=== PATIENT | female | born 2000 | race Two or more races ===

== ENCOUNTER 2018-06-08 09:39 | Inpatient (IN) | payer MEDICAID ==
[~2018-06-08] VITALS: Ht 152.4 cm; Wt 85.7 kg
--- NOTE | 2018-06-08 09:39 | NUR ---
ED Nurse Note: Patient brought in by ambulance from home, patient c/o Right lower quadrant abdominal pain that radiates to her vaginal area. patient reports she is 10 weeks , patient has been seen by OBGYN and has an appt on 06/12. patient was discharged obn 06/07/18 from [facility] had appendix removed on the 06/06/18 per pt. a/o x4, ambulatory.
[2018-06-08 09:42] VITALS: BP 108/72
--- NOTE | 2018-06-08 09:49 | NUR ---
ED Nurse Note: post-surgical site noted on the umbilical area, hypogastric area below the umbilical, and left lower quadrant. closed, no oozing noted.
--- NOTE | 2018-06-08 09:57 | Emergency Room Report ---
History of Present Illness General Chief Complaint: Abdominal Pain Source: Patient, EMS Present Illness HPI Patient is a 17-year-old female who presented after increased right lower abdominal pain. Patient had recent appendectomy at [facility]. Patient was discharged yesterday. Patient had prior history of laparoscopic appendectomy. Patient surgeon's name is Dr. Diego. She reported having worsening pain with supine position. She denies any fever. She states she has not been having any flatus or passing any gas. She reports having worsened pain with supine position. Pain was sharp in nature. She denies any vomiting. Allergies: Coded Allergies: No Known Allergies (Unverified , 06/08/18) Patient History Past Medical History: see triage record Last Menstrual Period: dec Now: Yes - 10 weeks : 1 Reviewed Nursing Documentation: PMH: Agreed; PSxH: Agreed Nursing Documentation-PMH Past Medical History: No Stated History Review of Systems All Other Systems: negative except mentioned in HPI Physical Exam Vital Signs Date Time Temp Pulse Resp B/P (MAP) Pulse Ox O2 Delivery O2 Flow Rate FiO2 06/08/18 09:30 98.1 109 20 105/68 98 Room Air Sp02 EP Interpretation: reviewed, normal General Appearance: normal inspection, alert, mild distress Head: atraumatic ENT: normal ENT inspection, hearing grossly normal, normal voice Neck: normal inspection, full range of motion, supple, no bony tend Respiratory: normal inspection, lungs clear, normal breath sounds, no respiratory distress, no retraction, no wheezing Cardiovascular #1: regular rate, rhythm, no edema Gastrointestinal: soft, tenderness Genitourinary: no CVA tenderness Musculoskeletal: normal inspection, back normal, normal range of motion Neurologic: normal inspection, alert, oriented x3, responsive, speech normal Psychiatric: normal inspection, judgement/insight normal, mood/affect normal Skin: no rash, other - healing incisions Medical Decision Making Diagnostic Impression: Primary Impression: Abdominal pain Additional Impression: S/P laparoscopic appendectomy ER Course Patient presented for abdominal pain. Differential diagnoses included ischemic bowel, appendicitis, perforated viscus, abdominal aortic aneurysm, inferior myocardial infarction, viral gastroenteritis among others. Because of complexity of patient's case laboratory testing and imaging studies were ordered. Patient was given IV fluids as well as IV pain medications. Patient was noted to have prior history of as well as recent appendectomy. She is given IV pain medications. I did discuss with patient surgeon who stated that she had an uncomplicated laparoscopic appendectomy without perforation. Laboratory testing was noted to have a slightly increased white blood count from prior labs from [facility]. Dr. Cronin was contacted for surgical consult. Dr. Tyler Irving was contacted for inpatient management. Labs Test 06/08/18 10:02 06/08/18 10:12 White Blood Count 15.2 K/UL (4.8-10.8) Red Blood Count 3.83 M/UL (4.20-5.40) Hemoglobin 11.5 G/DL (12.0-16.0) Hematocrit 33.7 % (37.0-47.0) Mean Corpuscular Volume 88 FL (80-99) Mean Corpuscular Hemoglobin 29.9 PG (27.0-31.0) Mean Corpuscular Hemoglobin Concent 34.0 G/DL (32.0-36.0) Red Cell Distribution Width 11.4 % (11.6-14.8) Platelet Count 270 K/UL (150-450) Mean Platelet Volume 6.6 FL (6.5-10.1) Neutrophils (%) (Auto) % (45.0-75.0) Lymphocytes (%) (Auto) % (20.0-45.0) Monocytes (%) (Auto) % (1.0-10.0) Eosinophils (%) (Auto) % (0.0-3.0) Basophils (%) (Auto) % (0.0-2.0) Differential Total Cells Counted 100 Neutrophils % (Manual) 84 % (45-75) Lymphocytes % (Manual) 8 % (20-45) Monocytes % (Manual) 8 % (1-10) Eosinophils % (Manual) 0 % (0-3) Basophils % (Manual) 0 % (0-2) Band Neutrophils 0 % (0-8) Platelet Estimate Adequate Platelet Morphology Normal Red Blood Cell Morphology Normal Sodium Level 134 MMOL/L (136-145) Potassium Level 3.4 MMOL/L (3.5-5.1) Chloride Level 101 MMOL/L (98-107) Carbon Dioxide Level 22 MMOL/L (21-32) Anion Gap 12 mmol/L (5-15) Blood Urea Nitrogen 5 mg/dL (7-18) Creatinine 0.5 MG/DL (0.55-1.30) Estimat Glomerular Filtration Rate > 60 mL/min (>60) Glucose Level 89 MG/DL (74-106) Lactic Acid Level 0.90 mmol/L (0.4-2.0) Calcium Level 9.0 MG/DL (8.5-10.1) Total Bilirubin 0.6 MG/DL (0.2-1.0) Aspartate Amino Transf (AST/SGOT) 15 U/L (15-37) Alanine Aminotransferase (ALT/SGPT) 14 U/L (12-78) Alkaline Phosphatase 68 U/L (46-116) Total Protein 7.2 G/DL (6.4-8.2) Albumin 2.7 G/DL (3.4-5.0) Globulin 4.5 g/dL Albumin/Globulin Ratio 0.6 (1.0-2.7) Lipase 48 U/L (73-393) Urine Color Yellow Urine Appearance Clear Urine pH 7 (4.5-8.0) Urine Specific [place] 1.010 (1.005-1.035) Urine Protein 2+ (NEGATIVE) Urine Glucose (UA) Negative (NEGATIVE) Urine Ketones 4+ (NEGATIVE) Urine Blood 1+ (NEGATIVE) Urine Nitrite Negative (NEGATIVE) Urine Bilirubin Negative (NEGATIVE) Urine Urobilinogen 1 MG/DL (0.0-1.0) Urine Leukocyte Esterase 1+ (NEGATIVE) Urine RBC 0-2 /HPF (0 - 2) Urine WBC 2-4 /HPF (0 - 2) Urine Squamous Epithelial Cells Few /LPF (NONE/OCC) Urine Bacteria Occasional /HPF (NONE) Urine Mucus Few /LPF (NONE/OCC) Urine HCG, Qualitative Positive (NEGATIVE) Last Vital Signs Date Time Temp Pulse Resp B/P (MAP) Pulse Ox O2 Delivery O2 Flow Rate FiO2 06/08/18 09:42 99.1 106 27 108/72 100 Room Air Status: improved Disposition: ADMITTED INPATIENT Condition: Ramy Galeana MD Jun 08, 2018 09:57
[2018-06-08] MEDS ORDERED: Morphine Sulfate 4mg/ml Inj (IV USE ONLY) IVP ONE (10:00)
--- NOTE | 2018-06-08 10:35 | NUR ---
ED Nurse Note: sister at bedside
[2018-06-08 10:41] LABS: APPEARANCE,URINE CLEAR; BILIRUBIN, URINE NEGATIVE (NEGATIVE); GLUCOSE, URINE (UA) NEGATIVE (NEGATIVE); KETONES,URINE 4+ (NEGATIVE); LEUKOCYTE ESTERASE ,URINE 1+ (NEGATIVE); NITRITE,URINE NEGATIVE (NEGATIVE); PH,URINE 7 (4.5-8.0); PROTEIN,URINE 2+ (NEGATIVE); UROBILINOGEN,URINE 1 MG/DL (0.0-1.0)
[2018-06-08 10:45] LABS: COLOR,URINE YELLOW
[2018-06-08 10:57] LABS: HEMATOCRIT 33.7 % (37.0-47.0); HEMOGLOBIN 11.5 G/DL (12.0-16.0); MEAN CORPUSCULAR VOLUME 88 FL (80-99); PLATELET COUNT 270 K/UL (150-450); RED BLOOD COUNT 3.83 M/UL (4.20-5.40); RED CELL DISTRIBUTION WIDTH 11.4 % (11.6-14.8); WHITE BLOOD COUNT 15.2 K/UL (4.8-10.8)
[2018-06-08 11:06] LABS: ANION GAP 12 mmol/L (5-15); BLOOD UREA NITROGEN 5 mg/dL (7-18); CARBON DIOXIDE 22 MMOL/L (21-32); CHLORIDE 101 MMOL/L (98-107); CREATININE 0.5 MG/DL (0.55-1.30); POTASSIUM 3.4 MMOL/L (3.5-5.1); SODIUM 134 MMOL/L (136-145)
[2018-06-08 11:11] LABS: ALANINE AMINOTRANSFERASE 14 U/L (12-78); ALBUMIN 2.7 G/DL (3.4-5.0); ALBUMIN/GLOBULIN RATIO 0.6 (1.0-2.7); ALKALINE PHOSPHATASE 68 U/L (46-116); ASPARTATE AMINO TRANSFERASE 15 U/L (15-37); BILIRUBIN,TOTAL 0.6 MG/DL (0.2-1.0)
--- NOTE | 2018-06-08 11:43 | NUR ---
ED Nurse Note: U/S is being done at bedside
[2018-06-08 12:23] VITALS: BP 94/60
[2018-06-08] MEDS ORDERED: Ampicillin/Sulbactam Sod 3 GM in NS 110 ML IVPB ONE (14:15)
--- NOTE | 2018-06-08 14:54 | NUR ---
ED Nurse Note: Patient cleared to go up to 3E, report given to Delmi Allan RN.
--- NOTE | 2018-06-08 14:59 | NUR ---
ED Nurse Note: spoke with dr. monge, ID consult, let him know that patient is receiving Unasyn and 10 weeks .
--- NOTE | 2018-06-08 15:15 | NUR ---
ED Nurse Note: patient is being transferred to with SHELIA Lee with all her belongings
[2018-06-08 15:30] VITALS: BP 105/68
[2018-06-08] MEDS ORDERED: Mylanta II UD 30ml ORAL PRN (15:30)
[2018-06-08] MEDS ORDERED: Nitroglycerin Subl 0.4mg tab SL PRN (15:30)
[2018-06-08] MEDS ORDERED: Miralax 17gm pkt ORAL PRN (15:30)
--- NOTE | 2018-06-08 15:30 | NUR ---
NURSE NOTES: Received report from Mary Johnston RN. Received patient. Patient a/o x 4 lying on the bed. No respiratory distress noted. c/o abdominal pain as 6/10 and patient stat will stand without pain medicine. Patient is 10wks . Belongings checked and room orientation was given to the patient. IV patent. Bed in lowest position, call light within reach. Will continue to monitor.
--- NOTE | 2018-06-08 15:32 | Consultation ---
History of Present Illness General Date patient seen: Jun 08, 2018 Reason for Hospitalization: Abdominal Pain Present Illness HPI This is a very pleasant 17-year-old female who is currently 8-10 weeks who presents to the emergency department at [facility] complaining of abdominal pain. Patient states that on she began abdominal pain and on Saturday went to [facility] where she was diagnosed with appendicitis based on MRI and taken to surgery for laparoscopic appendectomy. She was discharged on Saturday yesterday in stable condition. She went home did not fill her pain prescriptions and began to have abdominal pain. This morning she was feeling very unwell and stated pain with urinating and ambulatory in sitting supine and therefore came to emergency room for evaluation. States that she does have intermittent nausea but no emesis. Has not had flatus or bowel movement since prior to surgery. In the ED noted to have a leukocytosis. Surgery called to evaluate. Allergies: Coded Allergies: No Known Allergies (Unverified , 06/08/18) Patient History History Provided By: Patient, Medical Record, PMD Healthcare decision maker Resuscitation status Advanced Directive on File Review of Systems Review of Symptoms General ROS: no weight loss or fever Psychological ROS: no depression or mood changes, no memory loss Ophthalmic ROS: no visual changes or eye irritation ENT ROS: no nasal congestion, hearing loss, dizziness Allergy and Immunology ROS: no allergic symptoms or urticaria Hematological and Lymphatic ROS: no swollen glands, unusual bleeding or bruising Endocrine ROS: no polyuria, polydipsia, weight changes, temperature intolerance Respiratory ROS: no cough, shortness of breath, or wheezing Cardiovascular ROS: no chest pain or dyspnea on exertion Gastrointestinal ROS: denies abdominal pain, bright red blood in stool. Musculoskeletal ROS: no myalgias or arthralgias Neurological ROS: no TIA or stroke symptoms Dermatological ROS: no new or changing skin lesions, rashes or pruritis Physical Exam Physical Exam General appearance: alert, cooperative, no distress, appears stated age Head: Normocephalic, without obvious abnormality, atraumatic Eyes: conjunctivae/corneas clear. PERRL, EOM's intact. Fundi benign Throat: Lips, mucosa, and tongue normal. Teeth and gums normal Neck: supple, symmetrical, trachea midline, no adenopathy, thyroid: not enlarged, symmetric, no tenderness/mass/nodules, no carotid bruit and no JVD Lungs: clear to auscultation bilaterally Heart: regular rate and rhythm, S1, S2 normal, no murmur, click, rub or gallop Abdomen: soft, RLQ tender. Bowel sounds decreased. No masses, no organomegaly ; incisions c/d/i Extremities: extremities normal, atraumatic, no cyanosis or edema Pulses: 2+ and symmetric Skin: Skin color, texture, turgor normal. No rashes or lesions Neurologic: Grossly normal Last 24 Hour Vital Signs Date Time Temp Pulse Resp B/P (MAP) Pulse Ox O2 Delivery O2 Flow Rate FiO2 06/08/18 15:18 99.1 95 27 94/60 100 Room Air 06/08/18 12:23 95 94/60 06/08/18 10:53 99.1 06/08/18 09:42 99.1 106 27 108/72 100 Room Air 06/08/18 09:39 109 20 Room Air 06/08/18 09:30 98.1 109 20 105/68 98 Room Air Laboratory Tests Test 06/08/18 10:02 06/08/18 10:12 White Blood Count 15.2 K/UL (4.8-10.8) H Red Blood Count 3.83 M/UL (4.20-5.40) L Hemoglobin 11.5 G/DL (12.0-16.0) L Hematocrit 33.7 % (37.0-47.0) L Mean Corpuscular Volume 88 FL (80-99) Mean Corpuscular Hemoglobin 29.9 PG (27.0-31.0) Mean Corpuscular Hemoglobin Concent 34.0 G/DL (32.0-36.0) Red Cell Distribution Width 11.4 % (11.6-14.8) L Platelet Count 270 K/UL (150-450) Mean Platelet Volume 6.6 FL (6.5-10.1) Neutrophils (%) (Auto) % (45.0-75.0) Lymphocytes (%) (Auto) % (20.0-45.0) Monocytes (%) (Auto) % (1.0-10.0) Eosinophils (%) (Auto) % (0.0-3.0) Basophils (%) (Auto) % (0.0-2.0) Differential Total Cells Counted 100 Neutrophils % (Manual) 84 % (45-75) H Lymphocytes % (Manual) 8 % (20-45) L Monocytes % (Manual) 8 % (1-10) Eosinophils % (Manual) 0 % (0-3) Basophils % (Manual) 0 % (0-2) Band Neutrophils 0 % (0-8) Platelet Estimate Adequate Platelet Morphology Normal Red Blood Cell Morphology Normal Sodium Level 134 MMOL/L (136-145) L Potassium Level 3.4 MMOL/L (3.5-5.1) L Chloride Level 101 MMOL/L (98-107) Carbon Dioxide Level 22 MMOL/L (21-32) Anion Gap 12 mmol/L (5-15) Blood Urea Nitrogen 5 mg/dL (7-18) L Creatinine 0.5 MG/DL (0.55-1.30) L Estimat Glomerular Filtration Rate > 60 mL/min (>60) Glucose Level 89 MG/DL (74-106) Lactic Acid Level 0.90 mmol/L (0.4-2.0) Calcium Level 9.0 MG/DL (8.5-10.1) Total Bilirubin 0.6 MG/DL (0.2-1.0) Aspartate Amino Transf (AST/SGOT) 15 U/L (15-37) Alanine Aminotransferase (ALT/SGPT) 14 U/L (12-78) Alkaline Phosphatase 68 U/L (46-116) Total Protein 7.2 G/DL (6.4-8.2) Albumin 2.7 G/DL (3.4-5.0) L Globulin 4.5 g/dL Albumin/Globulin Ratio 0.6 (1.0-2.7) L Lipase 48 U/L (73-393) L Urine Color Yellow Urine Appearance Clear Urine pH 7 (4.5-8.0) Urine Specific [place] 1.010 (1.005-1.035) Urine Protein 2+ (NEGATIVE) H Urine Glucose (UA) Negative (NEGATIVE) Urine Ketones 4+ (NEGATIVE) H Urine Blood 1+ (NEGATIVE) H Urine Nitrite Negative (NEGATIVE) Urine Bilirubin Negative (NEGATIVE) Urine Urobilinogen 1 MG/DL (0.0-1.0) H Urine Leukocyte Esterase 1+ (NEGATIVE) H Urine RBC 0-2 /HPF (0 - 2) Urine WBC 2-4 /HPF (0 - 2) Urine Squamous Epithelial Cells Few /LPF (NONE/OCC) Urine Bacteria Occasional /HPF (NONE) Urine Mucus Few /LPF (NONE/OCC) H Urine HCG, Qualitative Positive (NEGATIVE) Height (Feet): 5 Weight (Pounds): 189 Assessment/Plan Problem List: (1) S/P laparoscopic appendectomy ICD Codes: Z90.49 - Acquired absence of other specified parts of digestive tract SNOMED: 2144254, 00143836, 108435366, [id number] (2) Abdominal pain Assessment & Plan: This is a very pleasant 17-year-old female status post lap scopic appendectomy for acute appendicitis while in her first trimester of who was discharged in stable condition but has since developed worsening abdominal pain. In discussing patient's care and condition we discussed her potential complications and current state of care. Does not seem as she had a complication of surgery but rather is developing an ileus and abdominal discomfort without treatment given that she has not her pain prescription or taking significant pain medication to subside the pain. Recommend admission for monitoring and care. Okay for sips of clears IV fluids IV abx serial exams pain Rx ambulate and out of bed will follow with recs thank you ICD Codes: R10.9 - Unspecified abdominal pain SNOMED: 14492873 (3) Ileus ICD Codes: K56.7 - Ileus, unspecified SNOMED: 257695333 Aldo Cronin Jun 08, 2018 15:32
[2018-06-08 16:00] VITALS: BP 105/68
[2018-06-08] MEDS: D5 1/2NS 1,000 ML IV SCH (16:44)
[2018-06-08] MEDS: Piperacillin/Tazobactam 3.375 GM in D5W 110 ML IVPB SCH (17:32)
--- NOTE | 2018-06-08 19:35 | NUR ---
HAND-OFF: Report given to HERMILO Dorsey. Patient in stable condition.
--- NOTE | 2018-06-08 19:41 | NUR ---
NURSE NOTES: Report taken from HERMILO Allan. Patient awake and in bed, A&Ox4, mother at bedside. No signs of distress on room air. She is complaining that the pain is getting worse from earlier, especially when she needs to move, 10/08. Surgical sites c/d/i, left open to air. IV site c/d/i, running IV fluids and zosyn. She has been made aware of the medication available to her and is aware of possible side effects especially while . No skin issues present. Continue to monitor, call light within reach, bed in lowest position.
[2018-06-08 20:00] VITALS: BP 101/66
[2018-06-08] MEDS: Heparin 5000 units/ml inj SUBQ SCH (20:28)
[2018-06-08] MEDS: Morphine Sulfate 2mg/ml Inj(IV/IM USE ONLY) IVP PRN (20:30)
[2018-06-09 00:05] VITALS: BP 105/67
[2018-06-09] MEDS: Piperacillin/Tazobactam 3.375 GM in D5W 110 ML IVPB SCH ×2 (02:09→10:40)
[2018-06-09] MEDS: D5 1/2NS 1,000 ML IV SCH ×2 (02:11→17:15)
[2018-06-09] MEDS: Morphine Sulfate 2mg/ml Inj(IV/IM USE ONLY) IVP PRN ×3 (06:27→20:36)
--- NOTE | 2018-06-09 07:20 | NUR ---
NURSE NOTES:WALKING ROUNDS DONE WITH NIGHT RN(ISIDRO),PATIENT SITTING A THE SIDE OF THE BED,A/OX4,ROOM AIR,PAIN LEVEL 6/10(CURRENTLY MEDICATED BY NIGHT NURSE)3 LAP SITES C/D/I,SUPPLY SPECIALIST.PLAN OF CARE DISCUSSED,VERBALIZED UNDERSTANDING.
--- NOTE | 2018-06-09 07:20 | NUR ---
HAND-OFF: Report given to HERMILO Cordero. Patient pain is 6/10, she is alert and VS stable.
[2018-06-09 07:28] LABS: BASOPHILS % (AUTO) 0.6 % (0.0-2.0); EOSINOPHILS % (AUTO) 1.1 % (0.0-3.0); HEMATOCRIT 29.3 % (37.0-47.0); HEMOGLOBIN 9.8 G/DL (12.0-16.0); LYMPHOCYTES % (AUTO) 10.3 % (20.0-45.0); MEAN CORPUSCULAR VOLUME 88 FL (80-99); MONOCYTES % (AUTO) 5.2 % (1.0-10.0); NEUTROPHILS % (AUTO) 82.9 % (45.0-75.0); PLATELET COUNT 278 K/UL (150-450); RED BLOOD COUNT 3.33 M/UL (4.20-5.40); RED CELL DISTRIBUTION WIDTH 11.6 % (11.6-14.8)
[2018-06-09 07:46] LABS: ALANINE AMINOTRANSFERASE 15 U/L (12-78); ALBUMIN 2.2 G/DL (3.4-5.0); ALBUMIN/GLOBULIN RATIO 0.5 (1.0-2.7); ALKALINE PHOSPHATASE 103 U/L (46-116); AMYLASE 30 U/L (25-115); ANION GAP 11 mmol/L (5-15); ASPARTATE AMINO TRANSFERASE 15 U/L (15-37); BILIRUBIN,TOTAL 0.8 MG/DL (0.2-1.0); BLOOD UREA NITROGEN 5 mg/dL (7-18); CALCIUM 8.3 MG/DL (8.5-10.1); CARBON DIOXIDE 21 MMOL/L (21-32); CHLORIDE 103 MMOL/L (98-107); CREATININE 0.5 MG/DL (0.55-1.30); POTASSIUM 3.1 MMOL/L (3.5-5.1); SODIUM 135 MMOL/L (136-145)
[2018-06-09 08:00] VITALS: BP 95/63
[2018-06-09] MEDS: Pantoprazole Inj IVP SCH (08:39)
[2018-06-09] MEDS: Heparin 5000 units/ml inj SUBQ SCH ×2 (08:41→20:40)
--- NOTE | 2018-06-09 11:27 | GI Initial Consult Note ---
History of Present Illness General Date patient seen: Jun 09, 2018 Time patient seen: 11:22 Reason for Hospitalization: Abdominal Pain Referring physician: JIMMY Reason for Consultation: Abdominal pain Present Illness HPI Patient is a 17-year-old female who presented after increased right lower abdominal pain. Patient had recent appendectomy at [facility]. Patient was discharged yesterday. Patient had prior history of laparoscopic appendectomy. Patient surgeon's name is Dr. Diego. She reported having worsening pain with supine position. She denies any fever. She states she has not been having any flatus or passing any gas. She reports having worsened pain with supine position. Pain was sharp in nature. She denies any vomiting. GI consulted for abdominal pain. Patient seen, awake alert and oriented x4 no apparent distress. Still has complaint of abdominal pain at this time, but has improved. Labs reviewed; white count of 12, hemoglobin of 9.8 and no transaminitis. Patient has no history of endoscopic or colonoscopy. Allergies: Coded Allergies: No Known Allergies (Unverified , 06/08/18) Patient History History Provided By: Patient, Medical Record PMH Narrative Past Medical History: see triage record Last Menstrual Period: dec Now: Yes - 10 weeks : 1 Reviewed Nursing Documentation: PMH: Agreed; PSxH: Agreed Nursing Documentation-PMH Past Medical History: No Stated History Past Surgical History: appendectomy Social History: Denies: smoking, alcohol use, drug use, other Review of Systems Genitourinary: Reports: no symptoms All Other Systems: negative except mentioned in HPI Physical Exam Vital Signs Date Time Temp Pulse Resp B/P (MAP) Pulse Ox O2 Delivery O2 Flow Rate FiO2 06/08/18 09:30 98.1 109 20 105/68 98 Room Air Sp02 EP Interpretation: reviewed, normal Labs Laboratory Tests Test 06/09/18 06:38 White Blood Count 12.0 K/UL (4.8-10.8) H Red Blood Count 3.33 M/UL (4.20-5.40) L Hemoglobin 9.8 G/DL (12.0-16.0) L Hematocrit 29.3 % (37.0-47.0) L Mean Corpuscular Volume 88 FL (80-99) Mean Corpuscular Hemoglobin 29.3 PG (27.0-31.0) Mean Corpuscular Hemoglobin Concent 33.3 G/DL (32.0-36.0) Red Cell Distribution Width 11.6 % (11.6-14.8) Platelet Count 278 K/UL (150-450) Mean Platelet Volume 6.2 FL (6.5-10.1) L Neutrophils (%) (Auto) 82.9 % (45.0-75.0) H Lymphocytes (%) (Auto) 10.3 % (20.0-45.0) L Monocytes (%) (Auto) 5.2 % (1.0-10.0) Eosinophils (%) (Auto) 1.1 % (0.0-3.0) Basophils (%) (Auto) 0.6 % (0.0-2.0) Activated Partial Thromboplast Time 37 SEC (23-33) H Sodium Level 135 MMOL/L (136-145) L Potassium Level 3.1 MMOL/L (3.5-5.1) L Chloride Level 103 MMOL/L (98-107) Carbon Dioxide Level 21 MMOL/L (21-32) Anion Gap 11 mmol/L (5-15) Blood Urea Nitrogen 5 mg/dL (7-18) L Creatinine 0.5 MG/DL (0.55-1.30) L Estimat Glomerular Filtration Rate > 60 mL/min (>60) Glucose Level 98 MG/DL (74-106) Calcium Level 8.3 MG/DL (8.5-10.1) L Total Bilirubin 0.8 MG/DL (0.2-1.0) Aspartate Amino Transf (AST/SGOT) 15 U/L (15-37) Alanine Aminotransferase (ALT/SGPT) 15 U/L (12-78) Alkaline Phosphatase 103 U/L (46-116) Total Protein 6.3 G/DL (6.4-8.2) L Albumin 2.2 G/DL (3.4-5.0) L Globulin 4.1 g/dL Albumin/Globulin Ratio 0.5 (1.0-2.7) L Amylase Level 30 U/L (25-115) Lipase 68 U/L (73-393) L General Appearance: well appearing, no apparent distress, alert Head: normocephalic EENT: PERRL/EOMI, normal ENT inspection Neck: supple Respiratory: normal breath sounds, no respiratory distress Cardiovascular: normal rate Gastrointestinal: normal inspection, non tender, soft, normal bowel sounds, non -distended Rectal: deferred Genitourinary: no CVA tenderness Musculoskeletal: normal inspection, back normal Neurologic: normal inspection, alert, oriented x3, responsive Psychiatric: normal inspection, judgement/insight normal, memory normal Skin: normal inspection, normal color, no rash, warm/dry, palpation normal, well hydrated Lymphatic: normal inspection, no adenopathy Current Medications Current Medications Medications (Trade) Dose Ordered Sig/Matt Route PRN Reason Start Time Stop Time Status Last Admin Dose Admin Acetaminophen (Tylenol) 650 mg Q4H PRN ORAL fever 06/08/18 15:30 07/08/18 15:29 Al Hydroxide/Mg Hydroxide (Mylanta II) 30 ml Q6H PRN ORAL dyspepsia 06/08/18 15:30 07/08/18 15:29 Dextrose (Dextrose 50%) 25 ml Q30M PRN IV Hypoglycemia 06/08/18 15:30 07/08/18 15:29 Dextrose (Dextrose 50%) 50 ml Q30M PRN IV Hypoglycemia 06/08/18 15:30 07/08/18 15:29 Dextrose/Sodium Chloride 1,000 ml @ 75 mls/hr [id number] IV 06/08/18 15:29 07/08/18 15:28 06/09/18 02:11 Diphenhydramine HCl (Benadryl) 25 mg Q6H PRN ORAL Itching/Pruritis 06/08/18 15:30 07/08/18 15:29 Heparin Sodium (Porcine) (Heparin 5000 units/ml) 5,000 units EVERY 12 HOURS SUBQ 06/08/18 21:00 07/08/18 20:59 06/09/18 08:41 Morphine Sulfate (Morphine Sulfate) 2 mg Q4H PRN IVP severe Pain (Pain Scale 7-10) 06/08/18 15:30 06/15/18 15:29 06/09/18 06:27 Nitroglycerin (Ntg) 0.4 mg Q5M X 3 DOSES PRN SL Prn Chest Pain 06/08/18 15:30 07/08/18 15:29 Ondansetron HCl (Zofran) 4 mg Q6H PRN IVP Nausea & Vomiting 06/08/18 15:30 07/08/18 15:29 Pantoprazole (Protonix) 40 mg DAILY IVP 06/09/18 09:00 07/09/18 08:59 06/09/18 08:39 Piperacillin Sod/ Tazobactam Sod 3.375 gm/Dextrose 110 ml @ 27.5 mls/hr Q8H IVPB 06/08/18 18:00 06/15/18 17:59 06/09/18 10:40 Polyethylene Glycol (Miralax) 17 gm HSPRN PRN ORAL Constipation 06/08/18 15:30 07/08/18 15:29 Temazepam (Restoril) 15 mg HSPRN PRN ORAL Insomnia 06/08/18 15:30 06/15/18 15:29 GI: Plan Problems: (1) S/P laparoscopic appendectomy (2) Abdominal pain (3) Ileus Plan Surgical note reviewed >> Possible developing ileus and abdominal discomfort Await return of bowel function Advance diet as tolerated, on clear liquid diet. Encourage ambulation Pain management Zofran as needed PPI IV hydration plus electrolyte correction anemia work up OB stool r/o GI bleed monitor H&H, prn transfusions bowel regime ppi fu labs Discussed with Dr. Alvarado. Thank you for this patient referral, we will follow. The patient was seen and examined at bedside and all new and available data was reviewed in the patients chart. I agree with the above findings, impression and plan. (Patient seen earlier today. Signature stamp does not reflect patient encounter time.). - MD Estrella Swenson AnhJeffrey PADILLA Jun 09, 2018 11:27
[2018-06-09 12:00] VITALS: BP 102/66
--- NOTE | 2018-06-09 12:53 | Consultation ---
History of Present Illness General Date patient seen: Jun 09, 2018 Chief Complaint: Abdominal Pain Referring physician: JIMMY Reason for Consultation: Abdominal pain Present Illness HPI 17 y/o F on 10 gestational week presents to ED on 06/08 with abd pain. Pain started 3 days prior to admission. She was seen in [facility] 2 days prior to admission and was diagnosed appendicitis based on MRI and taken for laparoscopic appendectomy and discharged next day in stable condition. Patient now returns with abd pain (did not filled her pain prescriptions), dysuria, intermittent nausea. Pain is worse in supine position. Denies emesis, fever. Allergies: Coded Allergies: No Known Allergies (Unverified , 06/08/18) Patient History Healthcare decision maker Resuscitation status Full Code Advanced Directive on File Patient History Narrative Pmhx: as above Shx: Denies: smoking, alcohol use, drug use, other Fhx: non contributory Review of Systems All Other Systems: negative except mentioned in HPI Physical Exam Physical Exam Narrative General appearance: alert, cooperative, no distress, appears stated age Head: Normocephalic, without obvious abnormality, atraumatic Eyes: conjunctivae/corneas clear. PERRL, EOM's intact. Fundi benign Throat: Lips, mucosa, and tongue normal. Teeth and gums normal Neck: supple, symmetrical, trachea midline, no adenopathy, thyroid: not enlarged, symmetric, no tenderness/mass/nodules, no carotid bruit and no JVD Lungs: clear to auscultation bilaterally Heart: regular rate and rhythm, S1, S2 normal, no murmur, click, rub or gallop Abdomen: soft, RLQ tender. Bowel sounds decreased. No masses, no organomegaly ; incisions c/d/i Extremities: extremities normal, atraumatic, no cyanosis or edema Pulses: 2+ and symmetric Skin: Skin color, texture, turgor normal. No rashes or lesions Neurologic: Grossly normal Last 24 Hour Vital Signs Date Time Temp Pulse Resp B/P (MAP) Pulse Ox O2 Delivery O2 Flow Rate FiO2 06/09/18 12:00 99.2 97 18 102/66 (78) 98 06/09/18 08:00 99.5 91 18 95/63 (74) 98 06/09/18 07:20 Room Air 06/09/18 00:05 98.9 97 18 105/67 (80) 98 06/08/18 21:00 Room Air 06/08/18 20:00 98.7 92 18 101/66 (78) 97 93 06/08/18 18:41 Room Air 06/08/18 15:52 Room Air 06/08/18 15:30 98.8 94 18 105/68 (80) 96 06/08/18 15:18 99.1 95 27 94/60 100 Room Air Intake and Output 06/08/18 06/09/18 19:00 07:00 Intake Total 277.5 ml 280 ml Balance 277.5 ml 280 ml Intake Oral 100 ml 280 ml IV Total 177.5 ml # Voids 1 2 Laboratory Tests Test 06/09/18 06:38 White Blood Count 12.0 K/UL (4.8-10.8) H Red Blood Count 3.33 M/UL (4.20-5.40) L Hemoglobin 9.8 G/DL (12.0-16.0) L Hematocrit 29.3 % (37.0-47.0) L Mean Corpuscular Volume 88 FL (80-99) Mean Corpuscular Hemoglobin 29.3 PG (27.0-31.0) Mean Corpuscular Hemoglobin Concent 33.3 G/DL (32.0-36.0) Red Cell Distribution Width 11.6 % (11.6-14.8) Platelet Count 278 K/UL (150-450) Mean Platelet Volume 6.2 FL (6.5-10.1) L Neutrophils (%) (Auto) 82.9 % (45.0-75.0) H Lymphocytes (%) (Auto) 10.3 % (20.0-45.0) L Monocytes (%) (Auto) 5.2 % (1.0-10.0) Eosinophils (%) (Auto) 1.1 % (0.0-3.0) Basophils (%) (Auto) 0.6 % (0.0-2.0) Activated Partial Thromboplast Time 37 SEC (23-33) H Sodium Level 135 MMOL/L (136-145) L Potassium Level 3.1 MMOL/L (3.5-5.1) L Chloride Level 103 MMOL/L (98-107) Carbon Dioxide Level 21 MMOL/L (21-32) Anion Gap 11 mmol/L (5-15) Blood Urea Nitrogen 5 mg/dL (7-18) L Creatinine 0.5 MG/DL (0.55-1.30) L Estimat Glomerular Filtration Rate > 60 mL/min (>60) Glucose Level 98 MG/DL (74-106) Calcium Level 8.3 MG/DL (8.5-10.1) L Total Bilirubin 0.8 MG/DL (0.2-1.0) Aspartate Amino Transf (AST/SGOT) 15 U/L (15-37) Alanine Aminotransferase (ALT/SGPT) 15 U/L (12-78) Alkaline Phosphatase 103 U/L (46-116) Total Protein 6.3 G/DL (6.4-8.2) L Albumin 2.2 G/DL (3.4-5.0) L Globulin 4.1 g/dL Albumin/Globulin Ratio 0.5 (1.0-2.7) L Amylase Level 30 U/L (25-115) Lipase 68 U/L (73-393) L Height (Feet): 5 Weight (Pounds): 189 Medications Current Medications Medications (Trade) Dose Ordered Sig/Matt Route PRN Reason Start Time Stop Time Status Last Admin Dose Admin Acetaminophen (Tylenol) 650 mg Q4H PRN ORAL fever 06/08/18 15:30 07/08/18 15:29 Al Hydroxide/Mg Hydroxide (Mylanta II) 30 ml Q6H PRN ORAL dyspepsia 06/08/18 15:30 07/08/18 15:29 Dextrose (Dextrose 50%) 25 ml Q30M PRN IV Hypoglycemia 06/08/18 15:30 07/08/18 15:29 Dextrose (Dextrose 50%) 50 ml Q30M PRN IV Hypoglycemia 06/08/18 15:30 07/08/18 15:29 Dextrose/Sodium Chloride 1,000 ml @ 75 mls/hr [id number] IV 06/08/18 15:29 07/08/18 15:28 06/09/18 02:11 Diphenhydramine HCl (Benadryl) 25 mg Q6H PRN ORAL Itching/Pruritis 06/08/18 15:30 07/08/18 15:29 Heparin Sodium (Porcine) (Heparin 5000 units/ml) 5,000 units EVERY 12 HOURS SUBQ 06/08/18 21:00 07/08/18 20:59 3/11/19 08:41 Morphine Sulfate (Morphine Sulfate) 2 mg Q4H PRN IVP severe Pain (Pain Scale 7-10) 06/08/18 15:30 06/15/18 15:29 06/09/18 06:27 Nitroglycerin (Ntg) 0.4 mg Q5M X 3 DOSES PRN SL Prn Chest Pain 06/08/18 15:30 07/08/18 15:29 Ondansetron HCl (Zofran) 4 mg Q6H PRN IVP Nausea & Vomiting 06/08/18 15:30 07/08/18 15:29 Pantoprazole (Protonix) 40 mg DAILY IVP 06/09/18 09:00 07/09/18 08:59 06/09/18 08:39 Piperacillin Sod/ Tazobactam Sod 3.375 gm/Dextrose 110 ml @ 27.5 mls/hr Q8H IVPB 06/08/18 18:00 06/15/18 17:59 06/09/18 10:40 Polyethylene Glycol (Miralax) 17 gm HSPRN PRN ORAL Constipation 06/08/18 15:30 07/08/18 15:29 Temazepam (Restoril) 15 mg HSPRN PRN ORAL Insomnia 06/08/18 15:30 06/15/18 15:29 Assessment/Plan Assessment/Plan Abx: Unasyn x1 06/08 Zosyn 06/08- Assessment: Abd pain, improving- ?developing ileus Leukocytosis- ? reactive; improving -u/a no pyuria -bcx p Recent Acute appendicitis s/p lap appendectomy 06/07 , 10 GWA Plan: -Switch empiric Zosyn #2 to Ceftriaxone for now -f/u cx -Monitor CBC/CMP, temperatures -GI, Sx f/u Thank you for this consultation. Will continue to follow along with you. Discussed with Soraida Arteaga M.D. Jun 09, 2018 12:53
--- NOTE | 2018-06-09 13:55 | NUR ---
CASE MANAGEMENT:REVIEW 17 YR OLD FEMALE BIBA FROM HOME CC; ABDOMINAL PAIN. S/P APPY AT [facility] SI: SURGICAL ABDOMEN 99.1 109 20 105/68 98% ON RA WBC+15.2 IS: IV ZOFRAN X1 IV MORPHINE X1 1L NS 500CC NS BOLUS IV AMPICILLIN ABDOMINAL/PELVIC US BLOOD CX : TO MED/SURG PLAN: SURGICAL CONSULT 06/09/18 SI: S/P LAP APPY ABD PAIN. ILEUS 99.5 91 95/63 98% ON RA WBC+12.0 H/H-9.8/29.3 K-3.1 IS: IV ZOSYN Q8HRS IV PROTONIX QD IV PROTONIX QD IV MORPHINE Q4HRS PRN : MED/SURG STATUS 3 EAST PLAN: CLEAR LIQUIDS PAIN MGMT URINE CX
[2018-06-09 16:00] VITALS: BP 116/66
--- NOTE | 2018-06-09 16:02 | NUR ---
*-* INSURANCE *-* ALL CLINICALS , REVIEW AND INTERQUAL FAXED TO: JERRY EDMOND: YANA P- [phone] X [facility] F- [phone]
--- NOTE | 2018-06-09 16:38 | Surgery Progress Note ---
Surgery Progress Note Subjective Symptoms: improved, tolerating diet, passing flatus Additional Comments pain much improved. no n/v/f/c. tolerating diet. labs improved Objective Last 24 Hour Vital Signs Date Time Temp Pulse Resp B/P (MAP) Pulse Ox O2 Delivery O2 Flow Rate FiO2 06/09/18 12:00 99.2 97 18 102/66 (78) 98 06/09/18 08:00 99.5 91 18 95/63 (74) 98 06/09/18 07:20 Room Air 06/09/18 00:05 98.9 97 18 105/67 (80) 98 06/08/18 21:00 Room Air 06/08/18 20:00 98.7 92 18 101/66 (78) 97 93 06/08/18 18:41 Room Air I&O Intake and Output 06/08/18 06/09/18 19:00 07:00 Intake Total 277.5 ml 280 ml Balance 277.5 ml 280 ml Intake Oral 100 ml 280 ml IV Total 177.5 ml # Voids 1 2 Cardiovascular: RSR Respiratory: clear Abdomen: soft, non-tender, present bowel sounds, non-distended Extremities: no cyanosis Laboratory Tests Test 06/09/18 06:38 White Blood Count 12.0 K/UL (4.8-10.8) H Red Blood Count 3.33 M/UL (4.20-5.40) L Hemoglobin 9.8 G/DL (12.0-16.0) L Hematocrit 29.3 % (37.0-47.0) L Mean Corpuscular Volume 88 FL (80-99) Mean Corpuscular Hemoglobin 29.3 PG (27.0-31.0) Mean Corpuscular Hemoglobin Concent 33.3 G/DL (32.0-36.0) Red Cell Distribution Width 11.6 % (11.6-14.8) Platelet Count 278 K/UL (150-450) Mean Platelet Volume 6.2 FL (6.5-10.1) L Neutrophils (%) (Auto) 82.9 % (45.0-75.0) H Lymphocytes (%) (Auto) 10.3 % (20.0-45.0) L Monocytes (%) (Auto) 5.2 % (1.0-10.0) Eosinophils (%) (Auto) 1.1 % (0.0-3.0) Basophils (%) (Auto) 0.6 % (0.0-2.0) Activated Partial Thromboplast Time 37 SEC (23-33) H Sodium Level 135 MMOL/L (136-145) L Potassium Level 3.1 MMOL/L (3.5-5.1) L Chloride Level 103 MMOL/L (98-107) Carbon Dioxide Level 21 MMOL/L (21-32) Anion Gap 11 mmol/L (5-15) Blood Urea Nitrogen 5 mg/dL (7-18) L Creatinine 0.5 MG/DL (0.55-1.30) L Estimat Glomerular Filtration Rate > 60 mL/min (>60) Glucose Level 98 MG/DL (74-106) Calcium Level 8.3 MG/DL (8.5-10.1) L Total Bilirubin 0.8 MG/DL (0.2-1.0) Aspartate Amino Transf (AST/SGOT) 15 U/L (15-37) Alanine Aminotransferase (ALT/SGPT) 15 U/L (12-78) Alkaline Phosphatase 103 U/L (46-116) Total Protein 6.3 G/DL (6.4-8.2) L Albumin 2.2 G/DL (3.4-5.0) L Globulin 4.1 g/dL Albumin/Globulin Ratio 0.5 (1.0-2.7) L Amylase Level 30 U/L (25-115) Lipase 68 U/L (73-393) L Plan Problems: (1) S/P laparoscopic appendectomy (2) Abdominal pain Assessment & Plan: This is a very pleasant 17-year-old female status post lap scopic appendectomy for acute appendicitis while in her first trimester of who was discharged in stable condition but has since developed worsening abdominal pain. In discussing patient's care and condition we discussed her potential complications and current state of care. Does not seem as she had a complication of surgery but rather is developing an ileus and abdominal discomfort without treatment given that she has not her pain prescription or taking significant pain medication to subside the pain. Recommend admission for monitoring and care. diet as tolerated IV fluids IV abx serial exams pain Rx ambulate and out of bed d/c planning will follow with recs thank you (3) Ileus Aldo Cronin Jun 09, 2018 16:38
[2018-06-09] MEDS: cefTRIAXone 1 GM in D5W 55 ML IVPB SCH (17:15)
--- NOTE | 2018-06-09 19:02 | History and Physical Report ---
DATE OF ADMISSION: 06/08/2018 DATE AND TIME SEEN: 06/09/2018, 12 noon. CONSULTANTS: 1. Aldo Cronin M.D. 2. Wilbert Garcia M.D. 3. Joseph Heath M.D. 4. Doc Alvarado M.D. CHIEF COMPLAINT: Abdominal pain, status post appendectomy. BRIEF HISTORY: This is a 17-year-old female, who 3 days ago had appendectomy at [facility]. She was discharged and abdominal pain became worse. The patient came to [facility] last night, diagnosed with abdominal pain status post appendectomy and possible sepsis with white count of 15. The patient was admitted to medical floor. Currently, feeling little better, slight abdominal discomfort. No complaint. REVIEW OF SYSTEMS: No chest pain. Slight short of breath. Slight nausea. No vomiting. No diarrhea. PAST MEDICAL HISTORY: Includes appendicitis. PAST SURGICAL HISTORY: Appendectomy 3 days ago. ALLERGIES: Denies. SOCIAL HISTORY: No smoking. No alcohol. No intravenous drug abuse. FAMILY HISTORY: Noncontributory. PHYSICAL EXAMINATION: GENERAL: Calm in bed, oriented x3, no acute distress. VITAL SIGNS: Temperature 99, pulse 91, respirations 18, blood pressure 95/63. CARDIOVASCULAR: No murmurs. LUNGS: Distant and clear. ABDOMEN: Bowel sounds positive. Distant. Soft. No guarding. No rigidity. No rebound. EXTREMITIES: No cyanosis, clubbing, or edema. NEUROLOGIC: The patient moves all extremities. Slightly weak. LABORATORY AND DIAGNOSTIC DATA: Labs at this time show white count went down to 12, hemoglobin and hematocrit 9.8/29, otherwise CBC is normal. Sodium 135, potassium 3.1, BUN and creatinine 5 and 0.5. PTT is 37. Urinalysis showed 1+ leukocyte esterase. MEDICATIONS: Include pantoprazole, heparin, Zosyn, Tylenol, morphine, Zofran, temazepam, diphenhydramine, aluminium hydroxide, nitroglycerin. ASSESSMENT: 1. Abdominal pain. 2. UTI. 3. Possible sepsis after appendectomy. PLAN: 1. Antibiotic per Infectious Disease. 2. Pain control. 3. Dietary followup. 4. IV fluids. 5. CBC, BMP in the morning. Tyler Irving D.O. DR: ANALY JOB#: [id number] CC:
[2018-06-09] MEDS ORDERED: NS 275ml ONE (19:08)
[2018-06-09] MEDS ORDERED: D5 1/2NS 1000ml IV ONE (19:08)
[2018-06-09] MEDS ORDERED: Tubing IV Secondary IV ONE (19:08)
--- NOTE | 2018-06-09 19:25 | NUR ---
HAND-OFF: Report given to .ISIDRO AKHTAR.
--- NOTE | 2018-06-09 19:27 | NUR ---
NURSE NOTES: Report taken from HERMILO Cordero. Patient is awake and in bed, A&Ox4. No signs of distess on room air. Mother at bedside. She will be getting a transfer to another area hospital, follow up with CM. Skin is c/d/i. IV site c/d/i and running IV fluids. Has some complaints of pain 7/10 RUQ. Stool sample not collected, will attempt to collect during shift. Tolerating regular diet. Bed in lowest position, call light within reach.
--- NOTE | 2018-06-09 19:32 | NUR ---
CASE MANAGEMENT:DCPNOTE PER MD PATIENT IS STABLE FOR TRANSFER TO [facility] SPOKE WITH MARCOS AFTER HOU[facility] / [phone] FAXED FACESHEET [phone] [facility] WILL FOLLOW UP
[2018-06-09 20:00] VITALS: BP 117/62
[2018-06-10] VITALS: BP 99/64
[2018-06-10] MEDS: Morphine Sulfate 2mg/ml Inj(IV/IM USE ONLY) IVP PRN (01:38)
[2018-06-10 04:00] VITALS: BP 102/69
[2018-06-10 07:14] LABS: BASOPHILS % (AUTO) 0.5 % (0.0-2.0); EOSINOPHILS % (AUTO) 2.8 % (0.0-3.0); HEMATOCRIT 28.7 % (37.0-47.0); HEMOGLOBIN 9.7 G/DL (12.0-16.0); LYMPHOCYTES % (AUTO) 20.5 % (20.0-45.0); MEAN CORPUSCULAR VOLUME 87 FL (80-99); MONOCYTES % (AUTO) 7.4 % (1.0-10.0); NEUTROPHILS % (AUTO) 68.8 % (45.0-75.0); PLATELET COUNT 298 K/UL (150-450); RED BLOOD COUNT 3.29 M/UL (4.20-5.40); RED CELL DISTRIBUTION WIDTH 11.3 % (11.6-14.8); WHITE BLOOD COUNT 8.3 K/UL (4.8-10.8)
--- NOTE | 2018-06-10 07:38 | NUR ---
HAND-OFF: Report given to HERMILO Leung. Patient is awake and stable. Follow up with CM for possible transfer to new hospital.
[2018-06-10 07:54] LABS: ALANINE AMINOTRANSFERASE 18 U/L (12-78); ALBUMIN 2.1 G/DL (3.4-5.0); ALBUMIN/GLOBULIN RATIO 0.5 (1.0-2.7); ALKALINE PHOSPHATASE 139 U/L (46-116); ANION GAP 11 mmol/L (5-15); ASPARTATE AMINO TRANSFERASE 21 U/L (15-37); BILIRUBIN,TOTAL 0.5 MG/DL (0.2-1.0); BLOOD UREA NITROGEN 3 mg/dL (7-18); CALCIUM 8.2 MG/DL (8.5-10.1); CARBON DIOXIDE 23 MMOL/L (21-32); CHLORIDE 103 MMOL/L (98-107); CREATININE 0.5 MG/DL (0.55-1.30); FERRITIN 217 NG/ML (8-388); POTASSIUM 2.9 MMOL/L (3.5-5.1); SODIUM 137 MMOL/L (136-145)
[2018-06-10 08:00] VITALS: BP 98/58
--- NOTE | 2018-06-10 08:00 | NUR ---
NURSE NOTES: Received report from Brandt RN, pt a/a/o x4 laying in bed with no signs of distress however pt complained of pain 10/08, RN will medicate patient as directed by . IV on the left AC gauge 3420 running D5 1/2 NS@75ml/hr. per material handler 2nd shift report OB needs to be collected, RN remained pt that stool needs to be collected, pt verbalized understanding. pt on a regular diet, and able to tolerated well. mother at bed side. I will f/u as needed.
[2018-06-10 09:26] LABS: % IRON SATURATION 16 % (15-50); IRON 30 ug/dL (50-175); TOTAL IRON BINDING CAPACITY 184 ug/dL (250-450)
[2018-06-10] MEDS: D5 1/2NS 1,000 ML IV SCH (09:34)
[2018-06-10] MEDS: Pantoprazole Inj IVP SCH (09:34)
[2018-06-10] MEDS: Heparin 5000 units/ml inj SUBQ SCH (09:35)
--- NOTE | 2018-06-10 10:57 | GI Progress Note ---
Assessment/Plan Problems: (1) S/P laparoscopic appendectomy ICD Codes: Z90.49 - Acquired absence of other specified parts of digestive tract SNOMED: 1039861, 69764140, 406956287, 911309804 (2) Abdominal pain ICD Codes: R10.9 - Unspecified abdominal pain SNOMED: 09888564 (3) Ileus ICD Codes: K56.7 - Ileus, unspecified SNOMED: 903860302 Status: unchanged Status Narrative Discussed with Dr. Alvarado Assessment/Plan Surgical note reviewed >> Possible developing ileus and abdominal discomfort Anemia workup reviewed. Await return of bowel function >> Advance diet as tolerated, on clear liquid diet. Encourage ambulation Pain management Zofran as needed PPI IV hydration plus electrolyte correction OB stool r/o GI bleed monitor H&H, prn transfusions bowel regime ppi fu labs The patient was seen and examined at bedside and all new and available data was reviewed in the patients chart. I agree with the above findings, impression and plan. (Patient seen earlier today. Signature stamp does not reflect patient encounter time.). - Doc Alvarado MD Subjective Subjective Abdominal pain improved, but still present Objective Last 24 Hour Vital Signs Date Time Temp Pulse Resp B/P (MAP) Pulse Ox O2 Delivery O2 Flow Rate FiO2 06/10/18 04:00 98.4 94 18 102/69 (80) 97 06/10/18 00:00 99.0 97 18 99/64 (76) 97 06/09/18 21:00 Room Air 06/09/18 20:00 98.4 94 18 117/62 (80) 96 06/09/18 16:00 98.8 95 18 116/66 (83) 95 06/09/18 12:00 99.2 97 18 102/66 (78) 98 Intake and Output 06/09/18 06/10/18 18:59 06:59 Intake Total 675 ml 1080 ml Balance 675 ml 1080 ml Intake Oral 1080 ml IV Total 675 ml # Voids 5 # Bowel Movements 1 Laboratory Tests Test 06/10/18 06:30 White Blood Count 8.3 K/UL (4.8-10.8) Red Blood Count 3.29 M/UL (4.20-5.40) L Hemoglobin 9.7 G/DL (12.0-16.0) L Hematocrit 28.7 % (37.0-47.0) L Mean Corpuscular Volume 87 FL (80-99) Mean Corpuscular Hemoglobin 29.5 PG (27.0-31.0) Mean Corpuscular Hemoglobin Concent 33.8 G/DL (32.0-36.0) Red Cell Distribution Width 11.3 % (11.6-14.8) L Platelet Count 298 K/UL (150-450) Mean Platelet Volume 6.2 FL (6.5-10.1) L Neutrophils (%) (Auto) 68.8 % (45.0-75.0) Lymphocytes (%) (Auto) 20.5 % (20.0-45.0) Monocytes (%) (Auto) 7.4 % (1.0-10.0) Eosinophils (%) (Auto) 2.8 % (0.0-3.0) Basophils (%) (Auto) 0.5 % (0.0-2.0) Reticulocyte Count Pending Prothrombin Time 10.4 SEC (9.30-11.50) Prothromb Time International Ratio 1.0 (0.9-1.1) Activated Partial Thromboplast Time 30 SEC (23-33) Sodium Level 137 MMOL/L (136-145) Potassium Level 2.9 MMOL/L (3.5-5.1) L Chloride Level 103 MMOL/L (98-107) Carbon Dioxide Level 23 MMOL/L (21-32) Anion Gap 11 mmol/L (5-15) Blood Urea Nitrogen 3 mg/dL (7-18) L Creatinine 0.5 MG/DL (0.55-1.30) L Estimat Glomerular Filtration Rate > 60 mL/min (>60) Glucose Level 89 MG/DL (74-106) Calcium Level 8.2 MG/DL (8.5-10.1) L Iron Level 30 ug/dL (50-175) L Total Iron Binding Capacity 184 ug/dL (250-450) L Percent Iron Saturation 16 % (15-50) Unsaturated Iron Binding 154 ug/dL (112-346) Ferritin 217 NG/ML (8-388) Total Bilirubin 0.5 MG/DL (0.2-1.0) Aspartate Amino Transf (AST/SGOT) 21 U/L (15-37) Alanine Aminotransferase (ALT/SGPT) 18 U/L (12-78) Alkaline Phosphatase 139 U/L (46-116) H Total Protein 6.1 G/DL (6.4-8.2) L Albumin 2.1 G/DL (3.4-5.0) L Globulin 4.0 g/dL Albumin/Globulin Ratio 0.5 (1.0-2.7) L Vitamin B12 Level 677 PG/ML (193-986) Folate 21.2 NG/ML (8.6-58.9) Thyroid Stimulating Hormone (TSH) 1.151 uiU/mL (0.358-3.740) Free Thyroxine 1.39 NG/DL (0.76-1.46) Microbiology Date/Time Source Procedure Growth Status 06/09/18 19:30 Urine,Clean Catch Urine Culture - Preliminary NO GROWTH Resulted Height (Feet): 5 Weight (Pounds): 189 General Appearance: WD/WN, no apparent distress, alert Cardiovascular: normal rate Respiratory/Chest: normal breath sounds, no respiratory distress Abdominal Exam: normal bowel sounds, non tender, soft Extremities: normal range of motion, non-tender Joselo De La Rosa NP Jun 10, 2018 10:57
[2018-06-10] MEDS: HYDROcodone/Acetamin 5/325 tab ORAL PRN ×2 (11:02→17:27)
--- NOTE | 2018-06-10 11:13 | NUR ---
TRANSFER UPDATE SCHOOL NURSE CALLED JERRY DASILVA T: [phone] AND LEFT [facility] REGARDING TRANSFER YESTERDAY THERE WEREN'T ANY BEDS AVAILABLE AT [facility] Addendum: 06/10/18 at 1345 by STEVO HARTMANN LVN LVN RECEIVED CALL FROM DAVE WITH [facility] STATING CURRENTLY THERE ARE NO BEDS AT [facility] SO THEY CANNOT TRANSFER TODAY. PATIENT IS AUTHORIZED TO REMAIN AT [facility] TODAY
[2018-06-10 12:00] VITALS: BP 116/72
--- NOTE | 2018-06-10 12:23 | NUR ---
CASE MANAGEMENT:REVIEW 06/10/18 SI: S/P LAP APPY. ILEUS 98.4 87 18 98/58 97% ON RA H/H-9.7/28.7 K-2.9 IS: IV ROCEPHIN Q24 IVF@ 75/HR IV PROTONIX QD HEPARIN SQ Q12 NORCO PO Q6HRS PRN K-DUR 60MEQ PO X1 : MED/SURG STATUS 3 EAST PLAN: PAIN MGMT AM LABS
--- NOTE | 2018-06-10 13:08 | Surgery Progress Note ---
Surgery Progress Note Subjective Additional Comments Seen and examined at bedside with no acute events. States she is feeling well. Tolerating diet. Had bowel movement. Leukocytosis resolved. Exam benign. Objective Last 24 Hour Vital Signs Date Time Temp Pulse Resp B/P (MAP) Pulse Ox O2 Delivery O2 Flow Rate FiO2 06/10/18 11:32 98.4 06/10/18 08:00 98.4 87 18 98/58 (71) 97 06/10/18 04:00 98.4 94 18 102/69 (80) 97 06/10/18 00:00 99.0 97 18 99/64 (76) 97 06/09/18 21:00 Room Air 06/09/18 20:00 98.4 94 18 117/62 (80) 96 06/09/18 16:00 98.8 95 18 116/66 (83) 95 I&O Intake and Output 06/09/18 06/10/18 18:59 06:59 Intake Total 675 ml 1080 ml Balance 675 ml 1080 ml Intake Oral 1080 ml IV Total 675 ml # Voids 5 # Bowel Movements 1 Cardiovascular: RSR Respiratory: clear Abdomen: soft, flat, non-tender, present bowel sounds, non-distended Extremities: no edema, no tenderness, no cyanosis Laboratory Tests Test 06/10/18 06:30 White Blood Count 8.3 K/UL (4.8-10.8) Red Blood Count 3.29 M/UL (4.20-5.40) L Hemoglobin 9.7 G/DL (12.0-16.0) L Hematocrit 28.7 % (37.0-47.0) L Mean Corpuscular Volume 87 FL (80-99) Mean Corpuscular Hemoglobin 29.5 PG (27.0-31.0) Mean Corpuscular Hemoglobin Concent 33.8 G/DL (32.0-36.0) Red Cell Distribution Width 11.3 % (11.6-14.8) L Platelet Count 298 K/UL (150-450) Mean Platelet Volume 6.2 FL (6.5-10.1) L Neutrophils (%) (Auto) 68.8 % (45.0-75.0) Lymphocytes (%) (Auto) 20.5 % (20.0-45.0) Monocytes (%) (Auto) 7.4 % (1.0-10.0) Eosinophils (%) (Auto) 2.8 % (0.0-3.0) Basophils (%) (Auto) 0.5 % (0.0-2.0) Reticulocyte Count 1.3 % (0.0-2.0) Prothrombin Time 10.4 SEC (9.30-11.50) Prothromb Time International Ratio 1.0 (0.9-1.1) Activated Partial Thromboplast Time 30 SEC (23-33) Sodium Level 137 MMOL/L (136-145) Potassium Level 2.9 MMOL/L (3.5-5.1) L Chloride Level 103 MMOL/L (98-107) Carbon Dioxide Level 23 MMOL/L (21-32) Anion Gap 11 mmol/L (5-15) Blood Urea Nitrogen 3 mg/dL (7-18) L Creatinine 0.5 MG/DL (0.55-1.30) L Estimat Glomerular Filtration Rate > 60 mL/min (>60) Glucose Level 89 MG/DL (74-106) Calcium Level 8.2 MG/DL (8.5-10.1) L Iron Level 30 ug/dL (50-175) L Total Iron Binding Capacity 184 ug/dL (250-450) L Percent Iron Saturation 16 % (15-50) Unsaturated Iron Binding 154 ug/dL (112-346) Ferritin 217 NG/ML (8-388) Total Bilirubin 0.5 MG/DL (0.2-1.0) Aspartate Amino Transf (AST/SGOT) 21 U/L (15-37) Alanine Aminotransferase (ALT/SGPT) 18 U/L (12-78) Alkaline Phosphatase 139 U/L (46-116) H Total Protein 6.1 G/DL (6.4-8.2) L Albumin 2.1 G/DL (3.4-5.0) L Globulin 4.0 g/dL Albumin/Globulin Ratio 0.5 (1.0-2.7) L Vitamin B12 Level 677 PG/ML (193-986) Folate 21.2 NG/ML (8.6-58.9) Thyroid Stimulating Hormone (TSH) 1.151 uiU/mL (0.358-3.740) Free Thyroxine 1.39 NG/DL (0.76-1.46) Plan Problems: (1) S/P laparoscopic appendectomy (2) Abdominal pain Assessment & Plan: This is a very pleasant 17-year-old female status post lap scopic appendectomy for acute appendicitis while in her first trimester of who was discharged in stable condition but has since developed worsening abdominal pain. In discussing patient's care and condition we discussed her potential complications and current state of care. Does not seem as she had a complication of surgery but rather is developing an ileus and abdominal discomfort without treatment given that she has not her pain prescription or taking significant pain medication to subside the pain. Recommend admission for monitoring and care. diet as tolerated pain Rx ambulate and out of bed d/c planning will follow with recs thank you (3) Ileus Aldo Cronin Jun 10, 2018 13:08
--- NOTE | 2018-06-10 14:32 | NUR ---
*-* INSURANCE *-* UPDATED REVIEWS FAXED TO: JERRY EDMOND: YANA P- [phone] X [facility] F- [phone]
--- NOTE | 2018-06-10 15:06 | Infectious Diseases Prog Note ---
Assessment/Plan Assessment/Plan Abx: Unasyn x1 06/08 Zosyn 06/08- Assessment: Abd pain, improving- ?developing ileus Leukocytosis- ? reactive; resolved -u/a no pyuria; ucx NTD -bcx NTD Recent Acute appendicitis s/p lap appendectomy 06/07 , 10 [facility] Plan: -Cont empiric Ceftriaxone #2 (abx d#06/01) -06/09 SP Zosyn #2 -06/08 SP Unasyn x1 -f/u cx -Monitor CBC/CMP, temperatures -GI, Sx f/u Thank you for this consultation. Will continue to follow along with you. Discussed with RN. Subjective Allergies: Coded Allergies: No Known Allergies (Unverified , 06/08/18) Subjective afebrile leukocytosis resolved UCx and Bcx NTD feeling better Objective Vital Signs Last 24 Hour Vital Signs Date Time Temp Pulse Resp B/P (MAP) Pulse Ox O2 Delivery O2 Flow Rate FiO2 06/10/18 12:00 98.4 77 18 116/72 (87) 98 06/10/18 11:32 98.4 06/10/18 09:00 Room Air 06/10/18 08:00 98.4 87 18 98/58 (71) 97 06/10/18 04:00 98.4 94 18 102/69 (80) 97 06/10/18 00:00 99.0 97 18 99/64 (76) 97 06/09/18 21:00 Room Air 06/09/18 20:00 98.4 94 18 117/62 (80) 96 06/09/18 16:00 98.8 95 18 116/66 (83) 95 Height (Feet): 5 Weight (Pounds): 189 Objective General appearance: alert, cooperative, no distress, appears stated age Head: Normocephalic, without obvious abnormality, atraumatic Eyes: conjunctivae/corneas clear. PERRL, EOM's intact. Fundi benign Throat: Lips, mucosa, and tongue normal. Teeth and gums normal Neck: supple, symmetrical, trachea midline, no adenopathy, thyroid: not enlarged, symmetric, no tenderness/mass/nodules, no carotid bruit and no JVD Lungs: clear to auscultation bilaterally Heart: regular rate and rhythm, S1, S2 normal, no murmur, click, rub or gallop Abdomen: soft, RLQ tender. Bowel sounds decreased. No masses, no organomegaly ; incisions c/d/i Extremities: extremities normal, atraumatic, no cyanosis or edema Pulses: 2+ and symmetric Skin: Skin color, texture, turgor normal. No rashes or lesions Neurologic: Grossly normal Microbiology Date/Time Source Procedure Growth Status 06/08/18 10:12 Blood Blood Culture - Preliminary NO GROWTH AFTER 24 HOURS Resulted 06/08/18 10:02 Blood Blood Culture - Preliminary NO GROWTH AFTER 24 HOURS Resulted 06/09/18 19:30 Urine,Clean Catch Urine Culture - Preliminary NO GROWTH Resulted Laboratory Tests Test 06/10/18 06:30 White Blood Count 8.3 K/UL (4.8-10.8) Red Blood Count 3.29 M/UL (4.20-5.40) L Hemoglobin 9.7 G/DL (12.0-16.0) L Hematocrit 28.7 % (37.0-47.0) L Mean Corpuscular Volume 87 FL (80-99) Mean Corpuscular Hemoglobin 29.5 PG (27.0-31.0) Mean Corpuscular Hemoglobin Concent 33.8 G/DL (32.0-36.0) Red Cell Distribution Width 11.3 % (11.6-14.8) L Platelet Count 298 K/UL (150-450) Mean Platelet Volume 6.2 FL (6.5-10.1) L Neutrophils (%) (Auto) 68.8 % (45.0-75.0) Lymphocytes (%) (Auto) 20.5 % (20.0-45.0) Monocytes (%) (Auto) 7.4 % (1.0-10.0) Eosinophils (%) (Auto) 2.8 % (0.0-3.0) Basophils (%) (Auto) 0.5 % (0.0-2.0) Reticulocyte Count 1.3 % (0.0-2.0) Prothrombin Time 10.4 SEC (9.30-11.50) Prothromb Time International Ratio 1.0 (0.9-1.1) Activated Partial Thromboplast Time 30 SEC (23-33) Sodium Level 137 MMOL/L (136-145) Potassium Level 2.9 MMOL/L (3.5-5.1) L Chloride Level 103 MMOL/L (98-107) Carbon Dioxide Level 23 MMOL/L (21-32) Anion Gap 11 mmol/L (5-15) Blood Urea Nitrogen 3 mg/dL (7-18) L Creatinine 0.5 MG/DL (0.55-1.30) L Estimat Glomerular Filtration Rate > 60 mL/min (>60) Glucose Level 89 MG/DL (74-106) Calcium Level 8.2 MG/DL (8.5-10.1) L Iron Level 30 ug/dL (50-175) L Total Iron Binding Capacity 184 ug/dL (250-450) L Percent Iron Saturation 16 % (15-50) Unsaturated Iron Binding 154 ug/dL (112-346) Ferritin 217 NG/ML (8-388) Total Bilirubin 0.5 MG/DL (0.2-1.0) Aspartate Amino Transf (AST/SGOT) 21 U/L (15-37) Alanine Aminotransferase (ALT/SGPT) 18 U/L (12-78) Alkaline Phosphatase 139 U/L (46-116) H Total Protein 6.1 G/DL (6.4-8.2) L Albumin 2.1 G/DL (3.4-5.0) L Globulin 4.0 g/dL Albumin/Globulin Ratio 0.5 (1.0-2.7) L Vitamin B12 Level 677 PG/ML (193-986) Folate 21.2 NG/ML (8.6-58.9) Thyroid Stimulating Hormone (TSH) 1.151 uiU/mL (0.358-3.740) Free Thyroxine 1.39 NG/DL (0.76-1.46) Current Medications Medications (Trade) Dose Ordered Sig/Matt Route PRN Reason Start Time Stop Time Status Last Admin Dose Admin Acetaminophen (Tylenol) 650 mg Q4H PRN ORAL fever 06/08/18 15:30 07/08/18 15:29 Acetaminophen/ Hydrocodone Bitart ([place] 5/325) 1 tab Q6H PRN ORAL For Pain 06/10/18 11:00 06/17/18 10:59 06/10/18 11:02 Al Hydroxide/Mg Hydroxide (Mylanta II) 30 ml Q6H PRN ORAL dyspepsia 06/08/18 15:30 07/08/18 15:29 Ceftriaxone Sodium 1 gm/ Dextrose 55 ml @ 110 mls/hr Q24H IVPB 06/09/18 18:00 06/16/18 17:59 06/09/18 17:15 Diphenhydramine HCl (Benadryl) 25 mg Q6H PRN ORAL Itching/Pruritis 06/08/18 15:30 07/08/18 15:29 Heparin Sodium (Porcine) (Heparin 5000 units/ml) 5,000 units EVERY 12 HOURS SUBQ 06/08/18 21:00 07/08/18 20:59 06/10/18 09:35 Ondansetron HCl (Zofran) 4 mg Q6H PRN IVP Nausea & Vomiting 06/08/18 15:30 07/08/18 15:29 Temazepam (Restoril) 15 mg HSPRN PRN ORAL Insomnia 06/08/18 15:30 06/15/18 15:29 Soraida Brannon M.D. Jun 10, 2018 15:06
[2018-06-10 16:00] VITALS: BP 102/62
--- NOTE | 2018-06-10 16:09 | General Progress Note ---
Assessment/Plan Problem List: (1) UTI (urinary tract infection) ICD Codes: N39.0 - Urinary tract infection, site not specified SNOMED: 82130870 (2) Ileus ICD Codes: K56.7 - Ileus, unspecified SNOMED: 955713167 (3) Abdominal pain ICD Codes: R10.9 - Unspecified abdominal pain SNOMED: 93128631 (4) S/P laparoscopic appendectomy ICD Codes: Z90.49 - Acquired absence of other specified parts of digestive tract SNOMED: 7134960, 88593788, 082902790, 972509133 Status: stable, progressing Assessment/Plan abx pain control gi sx f/u cbc bmp am dc plan Subjective Constitutional: Reports: weakness Allergies: Coded Allergies: No Known Allergies (Unverified , 06/08/18) All Systems: reviewed and negative except above Subjective tired in bed Objective Last 24 Hour Vital Signs Date Time Temp Pulse Resp B/P (MAP) Pulse Ox O2 Delivery O2 Flow Rate FiO2 06/10/18 12:00 98.4 77 18 116/72 (87) 98 06/10/18 11:32 98.4 06/10/18 09:00 Room Air 06/10/18 08:00 98.4 87 18 98/58 (71) 97 06/10/18 04:00 98.4 94 18 102/69 (80) 97 06/10/18 00:00 99.0 97 18 99/64 (76) 97 06/09/18 21:00 Room Air 06/09/18 20:00 98.4 94 18 117/62 (80) 96 Intake and Output 06/09/18 06/10/18 19:00 07:00 Intake Total 675 ml 1080 ml Balance 675 ml 1080 ml Intake Oral 1080 ml IV Total 675 ml # Voids 5 # Bowel Movements 1 Laboratory Tests 06/10/18 06:30: White Blood Count 8.3, Red Blood Count 3.29L, Hemoglobin 9.7L, Hematocrit 28.7L , Mean Corpuscular Volume 87, Mean Corpuscular Hemoglobin 29.5, Mean Corpuscular Hemoglobin Concent 33.8, Red Cell Distribution Width 11.3L, Platelet Count 298, Mean Platelet Volume 6.2L, Neutrophils (%) (Auto) 68.8, Lymphocytes (%) (Auto) 20.5, Monocytes (%) (Auto) 7.4, Eosinophils (%) (Auto) 2.8, Basophils (%) (Auto) 0.5, Reticulocyte Count 1.3, Prothrombin Time 10.4, Prothromb Time International Ratio 1.0, Activated Partial Thromboplast Time 30, Sodium Level 137, Potassium Level 2.9L, Chloride Level 103, Carbon Dioxide Level 23, Anion Gap 11, Blood Urea Nitrogen 3L, Creatinine 0.5L, Estimat Glomerular Filtration Rate > 60, Glucose Level 89, Calcium Level 8.2L, Iron Level 30L, Total Iron Binding Capacity 184L, Percent Iron Saturation 16, Unsaturated Iron Binding 154, Ferritin 217, Total Bilirubin 0.5, Aspartate Amino Transf (AST/SGOT) 21, Alanine Aminotransferase (ALT/SGPT) 18, Alkaline Phosphatase 139H, Total Protein 6.1L, Albumin 2.1L, Globulin 4.0, Albumin/ Globulin Ratio 0.5L, Vitamin B12 Level 677, Folate 21.2, Thyroid Stimulating Hormone (TSH) 1.151, Free Thyroxine 1.39 Height (Feet): 5 Weight (Pounds): 189 General Appearance: lethargic EENT: normal ENT inspection Neck: normal alignment Cardiovascular: normal peripheral pulses, normal rate, regular rhythm Respiratory/Chest: chest wall non-tender, lungs clear, normal breath sounds Abdomen: normal bowel sounds, non tender, soft Extremities: normal inspection Edema: no edema noted Arm (L), no edema noted Arm (R), no edema noted Leg (L), no edema noted Leg (R), no edema noted Pedal (L), no edema noted Pedal (R), no edema noted Generalized Neurologic: responsive, motor weakness Skin: normal pigmentation, warm/dry Tyler Irving DO Jun 10, 2018 16:09
[2018-06-10] MEDS: cefTRIAXone 1 GM in D5W 55 ML IVPB SCH (17:26)
--- NOTE | 2018-06-10 19:05 | NUR ---
NURSE NOTES: Received report & pt from HERMILO zheng. Pt lying in bed, a&ox4, in room air, family member at bedside. No s/s of acute distress & no c/o pain at this time. IV to be D/C'd upon d/c. Pt waiting for ride (private vehicle). Bed in lowest position, call light within reach. Will continue to monitor.
--- NOTE | 2018-06-10 19:25 | NUR ---
NURSE NOTES: Received order for discharge. discharge instructions and belongings list given to patient and pt's mother. IV removed prior to d/c. pt left the floor walking with no signs of distress or other issues. pt's mother accompanied pt. pt's sill call [employer] to provide transportation. Also given report to April AKHTAR. I will f/u as needed.
--- NOTE | 2018-06-10 19:30 | NUR ---
NURSE NOTES: Pt d/c'd to home as ordered. A&ox4, no c/o pain, skin intact. D/C papers & instructions signed & given. Pt belongings signed upon D/C. IV removed by AM shift as ordered. Pt refused w/c. Accompanied by mother & staff downstairs to private vehicle.
--- NOTE | 2018-06-11 12:04 | Discharge Summary ---
Discharge Summary Discharge Summary _ DATE OF ADMISSION: 06/08/2018 DATE OF DISCHARGE: 06/10/2018 DISCHARGED BY: Dr Irving REASON FOR ADMISSION: 17 years old female presented to ED with complaint of right lower abdominal pain. Patient reported recent laparoscopic appendectomy at [facility]. Patient was discharged the day prior to presentation to emergency department. Patient reported worsening pain in supine position. She denied fever and chills. She reported not passing any flatus. Pain described as sharp . She denied any nausea and vomiting. Upon evaluation patient was afebrile, slightly tachycardic Laboratory workup revealed leukocytosis WBC 15.2 ,hemoglobin 11.5. Sodium 134, potassium 3.4. Glucose 89. Lactic acid 0.9. Stable LFT and lipase. Urinalysis revealed +1 leukocyte esterase +2 protein. Urine test was positive. Patient was admitted for further management, CONSULTANTS: ID specialist Dr. Garcia GI specialist Dr. Alvarado surgery Dr. Cronin [facility] COURSE: Patient admitted to medical surgical floor and started on the IV fluids. Pain management was addressed as needed. Symptomatic treatment provided. Infectious disease specialist, GI and surgery consults were requested. Urinalysis revealed no evidence of pyuria . Urine culture was negative, blood culture were negative . Patient was on empiric antibiotic. Leukocytosis likely reactive and resoled, no fevers. Patient 10 weeks . Surgeon and GI followed. Per surgeon, patient does not seem to have any complication of surgery , rather than initial developing ileus and abdominal discomfort. Pain management was addressed and provided as needed. Out of bed ambulation was encouraged. Patient was started on diet and advanced as tolerated. Bowel regimen instituted. Antiemetic provided as needed . Patient started on PPI. Patient was continued on IV fluids with close monitoring and correction of electrolytes. Hemoglobin and hematocrit remained stable. Patient had bowel movement, patient tolerated diet. Abdominal pain resolved, leukocytosis resolved. Patient clinically stabilized and was ready for discharge home. Outpatient follow-up with primary care provider and [facility] . FINAL DIAGNOSES: Abdominal pain Status post laparoscopic appendectomy Ileus , first trimester DISCHARGE MEDICATIONS: Please refer to medication reconciliation list. DISCHARGE INSTRUCTIONS: Patient was discharged home . Follow up with primary care provider in one week. I have been assigned to dictate discharge summary for this account. I was not involved in the patient's management. Cecile Byers NP Jun 11, 2018 12:04
== END 2018-06-10 19:30 | disposition home or self-care (01) | DRG 566 ==
LOC: EDBD 09:39 → EMR 09:57 → EDBEDREQ 14:28 → 3E 14:58
DX: O99.611 Diseases of the digestive system complicating pregnancy, first trimester (principal); R10.9 Unspecified abdominal pain; Z98.890 Other specified postprocedural states; Z90.49 Acquired absence of other specified parts of digestive tract
CPT/HCPCS: 36415; 76705; 76801; 76856; 80053; 81003; 81025; 82150; 82607; 82728; 82746; 83540; 83550; 83605; 83690; 84439; 84443; 85007; 85025; 85044; 85610; 85730; 87040; 87086; 96361; 96365; 96375; 99285; J2405; J8499